=== PATIENT | female | born 2000 | race Caucasian/White ===

== ENCOUNTER 2021-12-07 05:45 | Inpatient (IN) ==
[2021-12-07] MEDS ORDERED: MEPERIDINE 50 MG/1 ML VIAL IV PRN (06:21)
[2021-12-07] MEDS ORDERED: miSOPROStoL 200 MCG TABLET RECTAL PRN (06:21)
[2021-12-07] MEDS ORDERED: ONDANSETRON 4 MG/2 ML VIAL IV PRN ×2 (06:21→20:01)
[2021-12-07] MEDS ORDERED: TRANEXAMIC ACID 1,000 MG in SODIUM CHLORIDE 0.9% 100 ML IV PRN (06:21)
[2021-12-07] MEDS ORDERED: CARBOPROST TROMETHAMINE 250 MCG/ML AMP IM PRN (06:21)
[2021-12-07] MEDS ORDERED: METHYLERGONOVINE 0.2 MG/1 ML AMP IM PRN (06:21)
[2021-12-07] MEDS ORDERED: OXYTOCIN/LR 20 UNIT/1,000 ML BAG IV ONE ×2 (06:21→20:30)
[2021-12-07 06:47] LABS: Basophils # 0.1 10*3/uL (0.0-0.2); Basophils % 0.6 % (0.0-0.8); Eosinophils # 0.2 10*3/uL (0.0-0.87); Eosinophils % 1.3 % (0.00-10.9); Hematocrit 36.9 VOL% (35.7-47.0); Hemoglobin 12.4 GM/DL (12.0-16.0); Immature Granulocytes % 1.2 %; Immature Granulocytes Absolute 0.14 #; Lymphocytes # 3.4 10*3/uL (1.4-4.0); Lymphocytes % 28.4 % (21.3-54.2); Mean Corpuscular HGB Conc 33.6 GM/DL (32-36); Mean Platelet Volume 9.4 FL (9.6-12.0); Monocytes # 0.9 10*3/uL (0.11-0.8); Neutrophils % 60.5 % (38.7-73.9); Platelet Count 328 T/CUMM (130-400); Red Blood Count 4.29 MC/CUMM (3.8-5.5); Red Cell Distribution Width 13.2 % (9.3-17.3); White Blood Count 11.8 T/CUMM (4-12)
[2021-12-07] MEDS: LACTATED RINGERS 1,000 ML IV SCH ×2 (08:44→18:17)
[2021-12-07] MEDS ORDERED: OXYTOCIN/LR 20 UNIT/1,000 ML BAG IV SCH (09:00)
[2021-12-07] MEDS ORDERED: AMPICILLIN INJ 2,000 MG in SODIUM CHLORIDE 0.9% 100 ML IV ONE (13:00)
[2021-12-07] MEDS ORDERED: AMPICILLIN INJ 1,000 MG in SODIUM CHLORIDE 0.9% 100 ML IV SCH (16:30)
[2021-12-07] MEDS ORDERED: FAMOTIDINE 20 MG/2 ML VIAL IV ONE (18:30)
[2021-12-07] MEDS ORDERED: ceFAZolin 2,000 MG/50 ML DUPLEX IV ONE (18:30)
[2021-12-07] MEDS ORDERED: CITRIC ACID/SODIUM CITRATE 30 ML UDCUP PO ONE (18:30)
[2021-12-07] MEDS ORDERED: TRANEXAMIC ACID 1,000 MG/10 ML VIAL ONE (18:34)
[2021-12-07] MEDS ORDERED: SODIUM CHLORIDE 0.9% 0 ML IV ONE (18:34)
[2021-12-07] MEDS ORDERED: miSOPROStoL 200 MCG TABLET ONE (18:34)
[2021-12-07] MEDS ORDERED: METHYLERGONOVINE 0.2 MG/1 ML AMP ONE (18:34)
[2021-12-07] MEDS ORDERED: CARBOPROST TROMETHAMINE 250 MCG/ML AMP IM ONE (18:35)
[2021-12-07] MEDS ORDERED: ROCURONIUM 50 MG/5 ML VIAL IV ONE (18:54)
[2021-12-07] MEDS ORDERED: SUCCINYLCHOLINE 200 MG/10 ML VIAL ONE (18:54)
[2021-12-07] MEDS ORDERED: propofoL 200 MG/20 ML VIAL IV ONE (18:54)
[2021-12-07] MEDS ORDERED: MIDAZOLAM 2 MG/2 ML VIAL ONE (18:54)
[2021-12-07] MEDS ORDERED: fentaNYL 250 MCG/5 ML VIAL ONE (18:55)
[2021-12-07] MEDS ORDERED: ePHEDrine 50 MG/ML VIAL ONE (19:00)
[2021-12-07] MEDS ORDERED: OXYTOCIN 10 UNIT/ML VIAL ONE (19:33)
[2021-12-07 19:53] LABS: Cord Arterial Blood HCO3 23.3 MMOL/L
[2021-12-07] MEDS ORDERED: GLYCOPYRROLATE 0.4 MG/2 ML VIAL ONE (19:55)
[2021-12-07 19:56] LABS: Cord Venous Blood HCO3 23.3 MMOL/L; Cord Venous Blood PCO2 42.5 MMHG; Cord Venous Blood PO2 43.9
[2021-12-07] MEDS ORDERED: NEOSTIGMINE 10 MG/10 ML VIAL ONE (19:56)
[2021-12-07] MEDS ORDERED: BUPIVACAINE MPF 0.5% /EPI 30 ML VIAL ONE (19:57)
[2021-12-07] MEDS ORDERED: DEXAMETHASONE 4 MG/1 ML VIAL ONE (19:57)
[2021-12-07] MEDS ORDERED: LIDOCAINE 2% 5 ML VIAL ONE (19:57)
[2021-12-07] MEDS ORDERED: MAGNESIUM HYDROXIDE SUSP 30 ML UDCUP PO PRN (20:01)
[2021-12-07] MEDS ORDERED: ACETAMINOPHEN 325 MG TABLET PO PRN (20:01)
[2021-12-07] MEDS ORDERED: RHO(D) IMMUNE GLOBULIN 300 MCG SYRINGE IM ONE (20:01)
[2021-12-07] MEDS ORDERED: HYDROmorphone 1 MG/1 ML SYRINGE ONE (20:06)
[2021-12-07] MEDS ORDERED: SEVOFLURANE 1 UNIT/15 MINUTE INH ONE (20:19)
[2021-12-07] MEDS ORDERED: LACTATED RINGERS 1,000 ML IV SCH (20:30)
[2021-12-07] MEDS ORDERED: HYDROmorphone 1 MG/1 ML SYRINGE IV PRN (21:01)
[2021-12-08] MEDS: IBUPROFEN 800 MG TABLET PO PRN ×2 (03:44→14:37)
[2021-12-08 06:38] LABS: Basophils % 0.1 % (0.0-0.8); Hematocrit 33.3 VOL% (35.7-47.0); Hemoglobin 11.4 GM/DL (12.0-16.0); Immature Granulocytes % 0.7 %; Lymphocytes % 7.1 % (21.3-54.2); Mean Corpuscular HGB Conc 34.2 GM/DL (32-36); Mean Platelet Volume 9.5 FL (9.6-12.0); Monocytes # 1.3 10*3/uL (0.11-0.8); Monocytes % 4.9 % (1.7-12.7); Neutrophils % 87.2 % (38.7-73.9); Platelet Count 386 T/CUMM (130-400); Red Blood Count 3.87 MC/CUMM (3.8-5.5); Red Cell Distribution Width 13.2 % (9.3-17.3); White Blood Count 27.4 T/CUMM (4-12)
[2021-12-08 07:01] LABS: Lymphocytes 6 % (20-55); Platelet Estimate Adequate; Total Cells Counted 100
[2021-12-08] MEDS: DOCUSATE SODIUM 100 MG CAPSULE PO SCH ×2 (09:52→21:50)
[2021-12-08] MEDS: MULTIVITAMIN (PRENATAL) TABLET PO SCH (09:52)
[2021-12-08] MEDS: SIMETHICONE CHEW 80 MG TABLET PO PRN (11:11)
[2021-12-08 12:53] LABS: Hematocrit 30.9 VOL% (35.7-47.0); Hemoglobin 10.3 GM/DL (12.0-16.0)
[2021-12-09] MEDS: MULTIVITAMIN (PRENATAL) TABLET PO SCH (08:49)
[2021-12-09] MEDS: SIMETHICONE CHEW 80 MG TABLET PO PRN (08:50)
[2021-12-09] MEDS: DOCUSATE SODIUM 100 MG CAPSULE PO SCH ×2 (08:50→21:14)
[2021-12-09] MEDS: IBUPROFEN 800 MG TABLET PO PRN (12:52)
[2021-12-10 07:58] VITALS: BP 112/68
[2021-12-10] MEDS: MULTIVITAMIN (PRENATAL) TABLET PO SCH (11:09)
[2021-12-10] MEDS: DOCUSATE SODIUM 100 MG CAPSULE PO SCH (11:09)
[2021-12-10] MEDS: IBUPROFEN 800 MG TABLET PO PRN (12:49)
== END 2021-12-10 15:35 | disposition home or self-care (01) | DRG 787 ==
LOC: N.LD 05:45 → N.OB 12-08 00:33
PROVIDERS: ADMIT Obstetrics & Gynecology; ATTEND Obstetrics & Gynecology
PROC: LDCSECT (ICD-10-PCS; 2021-12-07 19:08)